=== PATIENT | female | born 1955 | race Caucasian/White ===

== ENCOUNTER 2017-09-15 06:45 | Inpatient (IN) | payer BC ==
[2017-09-11 11:03] LABS: HEMATOCRIT 43.5 % (36.0-48.0); HEMOGLOBIN 14.3 g/dL (12-16); MCH 31.2 pg (26.0-34.0); MCHC 32.9 g/dL (31.0-37.0); MCV 94.8 fL (80.0-100.0); MEAN PLATELET VOLUME 8.8 fL (7.4-10.4); RBC 4.59 10x6/uL (4.00-5.40); RDW 14.3 % (11.5-14.5); WBC 8.3 10x3/uL (4.8-10.8)
[2017-09-11 11:21] LABS: CALC OSMOLALITY 273 mosm/kg (275-300); CALCIUM 8.6 mg/dL (8.5-10.1); CARBON DIOXIDE 29.8 mmol/L (21.0-32.0); CHLORIDE - SERUM 101 mmol/L (98-107); CREATININE - SERUM 0.8 mg/dL (0.6-1.3); GLUCOSE 106 mg/dL (74-106); POTASSIUM - SERUM 4.3 mmol/L (3.5-5.1); SODIUM 137 mmol/L (136-145); UREA NITROGEN 13 mg/dL (7-18); eGFR NON AFRICAN AMERICAN 77 mL/min (90-120)
[~2017-09-15] VITALS: Ht 172.7 cm; Wt 69.9 kg
[2017-09-15] VITALS (8 sets, daily range): BP systolic 99–132; BP diastolic 45–81; BMI 23.4
--- NOTE | ~2017-09-15 | DS ---
PATIENT:STEVEN LENTZ :57 MEDICAL RECORD: [id number] DISCHARGE SUMMARY ADMISSION DATE: 09/15/17 DISCHARGE DATE: 09/20/17 PRINCIPAL DIAGNOSIS: Apparent endoscopically unresectable transverse colon polyp, tattooed. PROCEDURE: Hand-assisted laparoscopic surgery - transverse colectomy with conversion to open right extended colectomy. HOSPITAL COURSE: The patient underwent the above operative procedure. In the operative specimen, no polyp was identified, so it must have been completely removed by the patient's sap bw developer. At the time of dismissal, she was tolerating a regular diet. She was having bowel movements. I will see her in the office in 2-3 weeks. She is being dismissed home on [place] as well as [place]. TRANSINT:[id number] Voice Confirmation ID: [id number] DOCUMENT ID: [id number] TAZ PHILIPPE MD at 1023 CC: [id number] DICTATION DATE: 09/20/17 1312 PURCHASING/RECEIVING: 09/20/17 1704 DIS IN 09/20/17 [facility] [address] [place] [address]
[~2017-09-15 06:45] MED LIST: BIOTIN5 MG PO; CELEXA40 MG PO; FOLIC ACID1 MG PO; MULTIPLE VITAMI1 TA1 PO; NEXIUM20 MG PO; PREDNISONE5 MG PO; PROBIOTIC250 MG PO; STERAPRED 5MG 125 MG PO; SYNTHROID50 MCG PO; TREXALL15 MG PO; ULTRAM50 MG PO; ZANAFLEX4 MG PO
[2017-09-16 00:34] VITALS: BP 126/74
[2017-09-16 04:29] LABS: BASOPHILS 0.1 % (0-2); EOSINOPHILS 0 % (0-7); HEMATOCRIT 40.8 % (36.0-48.0); HEMOGLOBIN 13.1 g/dL (12-16); IMMATURE GRANULOCYTES 0.2 % (0-5); LYMPHOCYTES 5.9 % (15-50); MCH 30.8 pg (26.0-34.0); MCHC 32.1 g/dL (31.0-37.0); MONOCYTES 6.4 % (2-11); NEUTROPHILS 87.4 % (40-80); PLATELET COUNT 266 10x3/uL (130-400); RBC 4.25 10x6/uL (4.00-5.40); RDW 14.7 % (11.5-14.5); WBC 12.5 10x3/uL (4.8-10.8)
[2017-09-16 04:52] LABS: ALBUMIN 2.7 g/dL (3.4-5.0); ALKALINE PHOSPHATASE 91 U/L (46-116); ALT (SGPT) 36 U/L (10-68); BILIRUBIN - TOTAL 0.44 mg/dL (0.2-1.3); CALC OSMOLALITY 278 mosm/kg (275-300); CALCIUM 8.1 mg/dL (8.5-10.1); CARBON DIOXIDE 28.5 mmol/L (21.0-32.0); CHLORIDE - SERUM 105 mmol/L (98-107); CREATININE - SERUM 0.7 mg/dL (0.6-1.3); GLUCOSE 133 mg/dL (74-106); MAGNESIUM - SERUM 1.8 mg/dL (1.8-2.4); PHOSPHOROUS 5.4 mg/dL (2.5-4.9); POTASSIUM - SERUM 4.1 mmol/L (3.5-5.1); PROTEIN - SERUM 5.8 g/dL (6.4-8.2); SODIUM 139 mmol/L (136-145); UREA NITROGEN 10 mg/dL (7-18); eGFR NON AFRICAN AMERICAN 90 mL/min (90-120)
[2017-09-16 06:12] VITALS: BP 134/71
[2017-09-16 08:48] VITALS: BP 131/60
[2017-09-16 12:18] VITALS: Ht 172.7 cm; Wt 69.9 kg
[2017-09-16 16:20] VITALS: BP 100/51
[2017-09-16 20:29] VITALS: BP 109/54
[2017-09-17 00:22] VITALS: BP 108/54
[2017-09-17 06:13] VITALS: BP 127/70
[2017-09-17 08:34] VITALS: BP 103/61
[2017-09-17 12:40] VITALS: BP 126/70
[2017-09-17 16:51] VITALS: BP 129/70
[2017-09-17 20:52] VITALS: BP 118/60
[2017-09-18 00:30] VITALS: BP 118/67
[2017-09-18 06:17] VITALS: BP 128/69
[2017-09-18 08:42] VITALS: BP 150/69
[2017-09-18 12:53] VITALS: BP 125/58
[2017-09-18 15:45] VITALS: BP 127/61
[2017-09-18 21:00] VITALS: BP 143/64
[2017-09-19 02:55] VITALS: BP 128/68
[2017-09-19 06:05] VITALS: BP 134/67
[2017-09-19 09:25] VITALS: BP 115/57
[2017-09-19 12:35] VITALS: BP 111/58
[2017-09-19 15:20] VITALS: BP 110/64
[2017-09-19 20:00] VITALS: BP 125/69
[2017-09-20] VITALS: BP 135/61
[2017-09-20 04:00] VITALS: BP 127/55
[2017-09-20 07:45] VITALS: BP 142/69
[2017-09-20 11:26] VITALS: BP 121/63
[2017-09-20] MEDS ORDERED: HYDROCODON-ACE1 EAC7 PO (13:24)
[2017-09-20] MEDS ORDERED: COLACE100 MG PO (13:25)
== END 2017-09-20 14:11 | disposition home or self-care (01) | DRG 331 ==
LOC: D.MS 06:45 → D.SDCHOLD 06:45 → D.MS 17:16
PROVIDERS: Anesthesiology; Surgery
PROC: 0DTF0ZZ Resection of Right Large Intestine, Open Approach (ICD-10-PCS; principal; 2017-09-15 10:00)
PROC: 0DTL0ZZ Resection of Transverse Colon, Open Approach (ICD-10-PCS; 2017-09-15 10:00)
PROC: 0DTB0ZZ Resection of Ileum, Open Approach (ICD-10-PCS; 2017-09-15 10:00)
DX: K63.5 Polyp of colon (principal); F41.9 Anxiety disorder, unspecified; M19.90 Unspecified osteoarthritis, unspecified site